=== PATIENT | male | born 1970 | race Caucasian/White ===

== ENCOUNTER 2020-04-23 12:11 | Emergency (ER) | payer MEDICAID ==
[~2020-04-23] VITALS: Ht 188 cm; Wt 108.9 kg
[2020-04-23 12:18] VITALS: Ht 188 cm; Wt 108.9 kg
[2020-04-23 13:01] VITALS: BP 132/81
== END 2020-04-23 13:01 | disposition home or self-care (01) ==
LOC: ED 12:11
DX: S61.213A Laceration without foreign body of left middle finger without damage to nail, initial encounter (principal); W26.0XXA Contact with knife, initial encounter; Y93.89 Activity, other specified; Y92.89 Other specified places as the place of occurrence of the external cause; Y99.8 Other external cause status
CPT/HCPCS: J2001